=== PATIENT | female | born 1995 | race American Indian/Alaskan Native ===

== ENCOUNTER 2019-02-15 02:00 | Emergency (ER) | payer MEDICAID, OTHER ==
[2019-02-15 02:25] LABS: Bilirubin,Urine NEG (Negative); Blood,Urine NEG (Negative); Color,Urine Yellow (Yellow); Mucus,Urine FEW /HPF; Protein,Urine <15 mg/dL mg/dL (Negative); Urobilinogen,Urine < 2.0 mg/dL (<2.0)
[2019-02-15 02:28] LABS: Basophils % (Auto) 0.6 % (0.0-1.8); Eosinophils # (Auto) 0.1 K/mm3 (0.0-0.4); Eosinophils % (Auto) 0.7 % (0.0-4.3); Hematocrit 29.3 % (30.3-42.9); Lymphocytes # (Auto) 2.5 K/mm3 (1.2-5.4); Lymphocytes % (Auto) 34.9 % (13.4-35.0); Mean Corpuscular HGB Conc 34 % (30-34); Mean Corpuscular Volume 86 fl (79-97); Monocytes # (Auto) 0.5 K/mm3 (0.0-0.8); Monocytes % (Auto) 7.5 % (0.0-7.3); Platelet Count 238 K/mm3 (140-440); Red Blood Count 3.41 M/mm3 (3.65-5.03); Red Cell Distribution Width 19.2 % (13.2-15.2)
[2019-02-15 02:49] LABS: Alanine Aminotransferase 24 units/L (7-56); Albumin 3.1 g/dL (3.9-5); BUN/Creatinine Ratio 16; Blood Urea Nitrogen 8 mg/dL (7-17); Calcium 8.9 mg/dL (8.4-10.2); Hemolysis Index 4
[2019-02-15] MEDS ORDERED: NACL 0.9% 1000 ML 1,000 ML ONE (03:20)
[2019-02-15] MEDS ORDERED: NACL 0.9% 1000 ML 1,000 ML IV ONE (03:21)
[2019-02-15] MEDS ORDERED: MORPHINE IV ONE (03:21)
[2019-02-15] MEDS ORDERED: ZOFRAN IV ONE (03:22)
--- NOTE | 2019-02-15 03:26 | Emergency Department Report ---
ED Female HPI - General Chief complaint: Abdominal Pain Stated complaint: 15WKS /ABDOMINAL/BACK PAIN Time Seen by Provider: 02/15/19 03:17 Source: patient, EMS Mode of arrival: Stretcher Limitations: No Limitations - History of Present Illness Initial comments: Patient is 23 years old female with no significant past medical history. Patient is 15 weeks . Patient presented to the ER complaining of bilateral flank pain and pelvic pain for the last week. Patient stated that she was seen in another facility and was diagnosed with a UTI started on Keflex. Patient stated that pain is getting worse. Patient denied any fever or chills. No nausea or vomiting. Patient denied any vaginal bleeding or vaginal discharge. MD Complaint: dysuria, pelvic pain -: week(s) - Related Data Allergies Allergy/AdvReac Type Severity Reaction Status Date / Time No Known Allergies Allergy Verified 02/15/19 03:20 ED Review of Systems ROS: Stated complaint: 15WKS /ABDOMINAL/BACK PAIN Other details as noted in HPI Comment: All other systems reviewed and negative Constitutional: denies: chills, fever Respiratory: denies: cough, orthopnea, shortness of breath, SOB with exertion, SOB at rest Cardiovascular: denies: chest pain, palpitations Gastrointestinal: abdominal pain. denies: nausea, vomiting, diarrhea, constipation, hematemesis, hematochezia Musculoskeletal: back pain Neurological: denies: headache, weakness, numbness, paresthesias, confusion, abnormal gait ED Past Medical Hx - Past Medical History Previous Medical History?: No - Surgical History Past Surgical History?: No - Social History Smoking Status: Current Some Day Smoker Substance Use Type: None ED Physical Exam - General Limitations: No Limitations General appearance: alert, in no apparent distress - Head Head exam: Present: atraumatic, normocephalic, normal inspection - Eye Eye exam: Present: normal appearance, PERRL - ENT ENT exam: Present: normal exam, normal orophraynx, mucous membranes moist - Neck Neck exam: Present: normal inspection, full ROM. Absent: tenderness, meningismus, lymphadenopathy, thyromegaly - Respiratory Respiratory exam: Present: normal lung sounds bilaterally. Absent: respiratory distress, wheezes, rales, rhonchi, stridor, chest wall tenderness, accessory muscle use, decreased breath sounds, prolonged expiratory - Cardiovascular Cardiovascular Exam: Present: regular rate, normal rhythm, normal heart sounds - GI/Abdominal GI/Abdominal exam: Present: soft, normal bowel sounds. Absent: distended, tenderness, guarding, rebound, rigid - Extremities Exam Extremities exam: Present: normal inspection, full ROM, normal capillary refill. Absent: calf tenderness - Back Exam Back exam: Present: normal inspection, CVA tenderness (R), CVA tenderness (L) - Neurological Exam Neurological exam: Present: alert, oriented X3, CN II-XII intact, normal gait, reflexes normal - Skin Skin exam: Present: warm, intact, normal color ED Course Vital Signs 02/15/19 02/15/19 02/15/19 02:10 02:17 03:46 Temperature 98.2 F 98.2 F Pulse Rate 80 80 79 Respiratory 18 18 16 Rate Blood Pressure 113/70 Blood Pressure 113/70 113/63 [Left] O2 Sat by Pulse 98 98 99 Oximetry 02/15/19 04:53 Temperature Pulse Rate 86 Respiratory 16 Rate Blood Pressure Blood Pressure 119/79 [Left] O2 Sat by Pulse 100 Oximetry ED Medical Decision Making - Lab Data Result diagrams: 02/15/19 02:16 02/15/19 02:16 - Radiology Data Radiology results: report reviewed - Medical Decision Making Patient is 23 years old female with no significant past medical history. Patient is 15 weeks . Patient presented to the ER complaining of bilateral flank pain and pelvic pain for the last week. Patient stated that she was seen in another facility and was diagnosed with a UTI started on Keflex. Patient stated that pain is getting worse. Patient denied any fever or chills. No nausea or vomiting. Patient denied any vaginal bleeding or vaginal discharge. Patient stated that she is feeling much better after fluids and morphine. Ultrasound showed a 15 weeks and 2 day viable intrauterine fetus. Critical care attestation.: If time is entered above; I have spent that time in minutes in the direct care of this critically ill patient, excluding procedure time. ED Disposition Clinical Impression: Back pain affecting Disposition: -01 TO HOME OR SELFCARE Is pt being admited?: No Condition: Stable Instructions: Abdominal Pain (ED) Referrals: PIERO GODINEZ MD [Primary Care Provider] - 3-5 Days
--- NOTE | 2019-02-15 04:52 | Ultrasound Report ---
PROCEDURE: US OB >= 14 WEEKS FETUS TECHNIQUE: Real-time transabdominal sonography of the uterus, placenta, amniotic fluid, adnexa, and fetus was performed with image documentation. Measurements were obtained to determine age/size. M-mode Doppler was used to document heartbeat. ADDITIONAL GESTATION: None HISTORY: 15 wks with abdominal pain COMPARISONS: None. FINDINGS: MATERNAL: Uterus and cervix: The cervix is closed measures 4.8 cm in length. Adnexa and ovaries: Not visualized. IUP: Single live intrauterine gestation. Position: Breech Placental position: Posterior, without previa . Amniotic fluid volume decreased. JAGUAR is 4.2 cm. Cardiac activity: Regular rhythm at 156 bpm. ANATOMY: Too early for anatomic survey. BIOMETRY: Biparietal diameter: 3 cm corresponding to 15 weeks and 3 days. Head circumference: 10.9 cm corresponding to 15 weeks and 2 days. Abdominal circumference: 9.4 cm corresponding to 15 weeks and 4 days. Femur length: 1.7 cm corresponding to 15 weeks. Mean Gestational Age (composite criteria) based on today's measurements: 15 weeks and 2 days. Estimated Due Date (earliest scan): 08/07/2019. IMPRESSION: Single live intrauterine gestation at 15 weeks and 2 days. Estimated due date: 08/07/2019. Amniotic fluid volume decreased. JAGUAR is 4.2 cm. Too early for anatomic survey. This document is electronically signed by Yo Storey MD., February 15 2019 04:50:33 AM ET
[2019-02-15 04:54] VITALS: BP 119/79
== END 2019-02-15 05:30 | disposition home or self-care (01) ==
LOC: ED 02:00
DX: O26.892 Other specified pregnancy related conditions, second trimester (principal); O99.332 Smoking (tobacco) complicating pregnancy, second trimester; M54.9 Dorsalgia, unspecified; R10.9 Unspecified abdominal pain; R10.2 Pelvic and perineal pain; Z3A.15 15 weeks gestation of pregnancy
CPT/HCPCS: 36415; 76805; 80053; 81001; 83690; 84703; 85025; 96374; 96375; 99284; J2270; J2405; J7030

== ENCOUNTER 2022-06-21 14:20 | Emergency (ER) | payer OTHER ==
[2022-06-21 15:03] VITALS: BP 121/79
--- NOTE | 2022-06-21 15:15 | Emergency Department Report ---
Blank Doc - Documentation Documentation: 26-year-old female that presents with heart palpitations, feeling down and dep ressed. Denies any suicidal homicidal ideation. Patient stated symptoms all started while taking Adderall. 1- This is a initial triage assessment/medical screening only. Full assessment and work-up will be completed once the patient is in proper hospital gown, ED bed and in a private room setting. This initial assessment/diagnostic orders/clinical plan/ treatment(s) is/are subject to change based on pt's health status, clinical progression and re-assessment by fellow clinical providers in the ED. Further treatment and workup at subsequent clinical providers discretion. Patient/guardians urged not to elope from ED as their condition may be serious if not clinically assessed and managed. 2-labs 3-UA 4-EKG The patient was evaluated in the emergency department for symptoms described in the history of present illness. He/she was evaluated in the context of the global COVID-19 pandemic, which necessitated consideration that the patient might be at risk for infection with the virus that causes COVID-19. Institutional protocols and algorithms that pertain to the evaluation of patients at risk for COVID-19 are in a state of rapid change based on information released by regulatory bodies including the CDC and federal and state organizations. These policies and algorithms were followed during the patient's care in the emergency department. Please note that these policies, procedures and recommendations changed on a rapid basis.
--- NOTE | 2022-06-23 13:53 | Electrocardiograph Report ---
[facility] Test Date: 2022-06-21 Test Time: 15:08:46 Pat Name: MARK CHAVES Department: Room: Gender: F [employer]: TANYA : 1995 Requested By: ED DOC Order Number: [id number] Reading MD: Rajesh Wright Measurements Intervals [place] Rate: 76 P: 61 [place]: 164 QRS: 50 QRSD: 88 T: 51 QT: 386 QTc: 436 Interpretive Statements Sinus rhythm No previous ECG available for comparison Electronically Signed On 06-23-2022 13:53:29 EDT by Rajesh Wright
== END 2022-06-23 17:13 | disposition left against medical advice (07) ==
LOC: ED 14:20
DX: F32.9 Major depressive disorder, single episode, unspecified (principal); Z53.21 Procedure and treatment not carried out due to patient leaving prior to being seen by health care provider
CPT/HCPCS: 93005